=== PATIENT | male | born 1960 | race African-American/Black ===

== ENCOUNTER 2020-10-15 09:54 | Inpatient (IN) | payer OTHER ==
[~2020-10-15] VITALS: Ht 180.3 cm; Wt 58.1 kg
--- NOTE | 2020-10-15 09:59 | NUR ---
BIB RA,C/O PAIN IN PELVIC AREA X 4 WEEKS, R GROIN AREA PAIN, TO ER BED 10, HOOKED TO MONITOR, CGHANGED TO HOSP GOWN, WARM BLANKET PROVIDED, PATOENT AAO x 4. NAD NOTED, AWAITING MD SCOTT
--- NOTE | 2020-10-15 10:24 | NUR ---
DR SMITH AT BEDSIDE
[2020-10-15 10:52] LABS: BASOPHILS % (AUTO) 0.3 % (0.0-2.0); EOSINOPHILS % (AUTO) 0.4 % (0.0-6.0); HEMATOCRIT 40 % (39-51); HEMOGLOBIN 13.4 g/dL (13.5-17.5); LYMPHOCYTES # (AUTO) 0.8 /CMM (0.8-4.8); LYMPHOCYTES % (AUTO) 10.6 % (20.0-44.0); MEAN CORPUSCULAR HGB CONC 34 g/dl (31.0-36.0); MEAN CORPUSCULAR VOLUME 91 fL (80-96); MONOCYTES # (AUTO) 0.8 /CMM (0.1-1.30); MONOCYTES % (AUTO) 9.8 % (2.0-12.0); NEUTROPHILS # (AUTO) 6.2 /CMM (1.8-8.9); NEUTROPHILS % (AUTO) 78.9 % (43.0-81.0); PLATELET COUNT (AUTO) 377 /CMM (150-450); WHITE BLOOD COUNT (AUTO) 7.8 K/uL (4.3-11.0)
[2020-10-15 11:10] LABS: CALCIUM, SERUM 8.7 mg/dL (8.5-10.1); CARBON DIOXIDE 29 mmol/L (21-32); CHLORIDE 100 mmol/L (98-107); GLUCOSE 96 mg/dL (74-106); SODIUM SERUM 137 mmol/L (136-145); UREA NITROGEN, BLOOD 17 mg/dL (7-18)
[2020-10-15 11:14] LABS: ALANINE AMINOTRANSFERASE 19 U/L (12-78); ALBUMIN 3.2 g/dL (3.4-5.0); ALKALINE PHOSPHATASE 72 U/L (46-116); ASPARTATE AMINOTRANSFERASE 16 U/L (15-37); BILIRUBIN,DIRECT 0.1 mg/dL (0.0-0.2); BILIRUBIN,TOTAL 0.4 mg/dL (0.2-1.0); TOTAL PROTEIN, SERUM 7.6 g/dL (6.4-8.2)
[2020-10-15] MEDS ORDERED: IOHEXOL-300 100 ML VIAL IV ONE (11:22)
[2020-10-15] MEDS ORDERED: IV NS 0.9% 250 ML IV ONE (11:22)
[2020-10-15] MEDS ORDERED: CT SWABBABLE VALVE TRANS SET 1 EA INFUS.SET MC ONE (11:22)
[2020-10-15 12:07] LABS: LIPASE 106 U/L (73-393)
--- NOTE | 2020-10-15 13:30 | NUR ---
LAST PO INTAKE, PROVIDED WITH MD GRACIA AWARE
--- NOTE | 2020-10-15 13:42 | NUR ---
ADMITTED FOR RECTAL ABSCESS
[2020-10-15] MEDS ORDERED: PIPERACILLIN /TAZOBACTAM 3.375 G in IV D5W 50 ML IV ONE (14:00)
[2020-10-15] MEDS ORDERED: VANCOMYCIN 1 GM in IV D5W 250 ML IV ONE (14:00)
--- NOTE | 2020-10-15 14:18 | NUR ---
PER DR CORREA, PATIENT IS FOR CT GUIDED ABSCESS DRAINAGE THROUGH IR IN THE MORNING, KEEP NPO AFTER MIDNIGHT.
[2020-10-15] MEDS ORDERED: Z GUARD REMEDY 2 OZ OINT TP PRN (14:30)
[2020-10-15] MEDS ORDERED: ONDANSETRON HCL/PF 4 MG/2 ML VIAL IVP PRN (14:30)
[2020-10-15] MEDS ORDERED: MAGNESIUM HYDROXIDE 30 ML UDC PO PRN (14:30)
[2020-10-15] MEDS ORDERED: ZOLPIDEM TARTRATE 5 MG TABLET PO PRN (14:30)
[2020-10-15] MEDS ORDERED: MAG HYDROX/AL HYDROX/SIMETH 30 ML UDC PO PRN (14:30)
[2020-10-15] MEDS ORDERED: ACETAMINOPHEN 325 MG TABLET PO PRN (14:30)
[2020-10-15] MEDS ORDERED: HYDROCODONE/APAP 5/325MG TABLET PO PRN (14:30)
--- NOTE | 2020-10-15 14:32 | NUR ---
PATIENT REFUSED TO DO COVID SWAB, MADE DR COLLAZO AWARE. AWAITING FOR CALL BACK.
--- NOTE | 2020-10-15 14:42 | NUR ---
DR SMITH SPEAKING TO PATIENT REGARDING REFUSAL OF COVID SWAB.
--- NOTE | 2020-10-15 15:02 | NUR ---
ARCHIVES DIRECTOR AT BEDSIDE FOR BRIAN
--- NOTE | 2020-10-15 15:51 | NUR ---
Brittni garrett in ED - 10/15/20 at 1551 by MAMIE PER PATIENT, HE CAME FROM [facility]
--- NOTE | 2020-10-15 15:58 | NUR ---
DR CORREA MADE AWARE OF PATIENT REFUSAL FOR COVID SWAB
--- NOTE | 2020-10-15 17:02 | NUR ---
per house sup, no available nurse for now. will update us once patient is able to be transferred
--- NOTE | 2020-10-15 17:33 | NUR ---
REPORT GIVEN TO ARIA BAZZI OF [facility]
--- NOTE | 2020-10-15 17:45 | NUR ---
m/s space operations: notes brought pt from e.r for night admission per rn supervisor mechanic boilermaking and cn. pt awake, a/ox4, ambulatory. no c/o pain or any discomfort. oriented to room and surroundings. pt for ct guided abscess drainage through ir per report. pt to be npo. per report pt refused covid swab test and dr. carballo and dr. chairez aware. vss, afebrile. instructed to call for assistance. will continue to monitor.
[2020-10-15 18:00] VITALS: BP 132/69
[2020-10-15] MEDS: IV NS 0.9% 1,000 ML IV PRN ×2 (18:46→18:57)
[2020-10-15] MEDS: PIPERACILLIN /TAZOBACTAM 3.375 G in IV D5W 50 ML IV SCH ×2 (19:00→23:21)
--- NOTE | 2020-10-15 19:30 | NUR ---
m/s beam saw operator: notes consent obtained from pt re: CT guided abscess drainage or gabriel rectal abscess. pt to be npo after midnight, pt made aware.
--- NOTE | 2020-10-15 19:30 | NUR ---
RN OPENING NOTES: RECEIVED PT A/OX4 IN BED RESTING COMFORTABLY. PATIENT IN NO S/SX OF ACUTE DISTRESS AT THIS TIME. NO SOB NOTED. PATIENT'S BREATHING IS EVEN AND UNLABORED. PATIENT IS ON ROOM AIR; TOLERATING WELL; SATING @100% 02 SAT. PATIENT ON NPO AT THIS TIME IN PREPARATION TO MORNING PROCEDURE BREEZY. NOTED IV SITE ON L UA #18; PATENT, INTACT AND FLUSHING WELL; NO S/S OF INFECTION OR INFILTRATION. WITH IV FLUID RUNNING ORDERED. SAFETY MEASURES HAVE BEEN PROVIDED AND IMPLEMENTED. PATIENT BED ALARM IS ON. HEAD OF BED ELEVATED. BED IS LOCKED, IN LOWEST POSITION AND SIDE RAILS UP. CALL LIGHT WITHIN REACH OF THE PATIENT. APPLICABLE ISOLATION PRECAUTIONS IN PLACE. WILL CONTINUE TO MONITOR AND REASSESS FOR ANY CHANGES AND WILL CARRY OUT ANY ONGOING AND ACTIVE MD ORDER.
[2020-10-15 20:00] VITALS: BP 138/68
--- NOTE | 2020-10-15 23:00 | NUR ---
RN NOTES PATIENT REMAINS IN NO ACUTE RESPIRATORY DISTRESS AT THIS TIME, NO CHANGES TO CONDITION/STATUS. DRY CURE WORKER WELL AWARE. WILL CONTINUE TO MONITOR AND REASSESS FOR ANY CHANGES THROUGHOUT THE SHIFT
[2020-10-16] MEDS: IV NS 0.9% 1,000 ML IV PRN (03:00)
--- NOTE | 2020-10-16 03:00 | NUR ---
RN NOTES NO CHANGES IN PATIENT CONDITION AT THIS TIME PATIENT VITALS STABLE, NO SIGNS OF ACUTE RESPIRATORY DISTRESS. PATIENT STILL IN BED SLEEPING COMFORTABLY. NO COMPLAINTS OF PAIN OR ANY DISCOMFORT AT THIS TIME. WILL CONTINUE TO MONITOR AND REASSESS FOR ANY CHANGES THROUGHOUT THE SHIFT.
[2020-10-16 04:00] VITALS: BP 128/70
[2020-10-16] MEDS: PIPERACILLIN /TAZOBACTAM 3.375 G in IV D5W 50 ML IV SCH (05:05)
[2020-10-16 06:27] LABS: BASOPHILS % (AUTO) 0.3 % (0.0-2.0); EOSINOPHILS % (AUTO) 1.2 % (0.0-6.0); HEMATOCRIT 37 % (39-51); HEMOGLOBIN 12.5 g/dL (13.5-17.5); LYMPHOCYTES # (AUTO) 1.4 /CMM (0.8-4.8); MEAN CORPUSCULAR HGB CONC 34 g/dl (31.0-36.0); MEAN CORPUSCULAR VOLUME 90 fL (80-96); MONOCYTES # (AUTO) 0.8 /CMM (0.1-1.30); MONOCYTES % (AUTO) 9.9 % (2.0-12.0); NEUTROPHILS # (AUTO) 5.8 /CMM (1.8-8.9); NEUTROPHILS % (AUTO) 71.6 % (43.0-81.0); PLATELET COUNT (AUTO) 362 /CMM (150-450); RED BLOOD CELL COUNT(AUTO) 4.14 MIL/uL (4.5-6.0); WHITE BLOOD COUNT (AUTO) 8.1 K/uL (4.3-11.0)
--- NOTE | 2020-10-16 06:40 | NUR ---
RN CLOSING NOTES PATIENT REMAINS IN ROOM IN NO SIGNS OF RESPIRATORY DISTRESS. PATIENT SATURATING 99% OF 02. VITAL SIGNS WNL. IV LINE MAINTAINED, INTACT, PATENT AND FLUSHING, NO SITE REDNESS OR INFILTRATION. SAFETY PRECAUTIONS IN PLACE AND COMFORT MEASURES RENDERED. BED IN LOWEST POSITION, CALL LIGHT WITHIN REACH, BREAKS ON, SIDE RAILS UP. ALL NEEDS ATTENDED, MEDICATIONS GIVEN SCHEDULED AND ORDERED ; SHIFT ASSESSMENT/BEDBATH/SKIN CARE DONE. PATIENT KEPT CLEAN AND DRY. WILL ENDORSE TO INCOMING SHIFT FOR WILVER WITH ALL PERTINENT INFO REGARDING PATIENT STATUS.
[2020-10-16 06:51] LABS: CALCIUM, SERUM 8.3 mg/dL (8.5-10.1); CREATININE 0.9 mg/dL (0.6-1.3); MAGNESIUM 2.3 mg/dL (1.8-2.4); POTASSIUM 4.1 mmol/L (3.5-5.1)
--- NOTE | 2020-10-16 08:00 | NUR ---
PATIENT RECEIVED IN BED ON ROOM AIR O2 SATURATION 99% NO RESPIRATORY DISTRESS. PATIENT IS AMBULATORY, HAS ASTON #18G RUNNING NS @ 125 ML/HR. NO SIGNS OF INFECTION OR INFILTRATION. PATIENT TO POSSIBLY HAVE CT GUIDED ABCESS DRAIN, CONSENT VERIFIED, CONSENT FOR ANESTHESIA AND BLOOD TRANSFUSION OBTAINED. PER CT, ON-CALL RADIOLOGIST MAY NOT COME DUE TO IT BEING A ROUTINE PROCEDURE. ALL SAFETY MEASURES IN PLACE. WILL CONTINUE TO MONITOR CLOSELY
--- NOTE | 2020-10-16 09:15 | NUR ---
PATIENT NOTIFIED THAT RADIOLOGY PREFERS TO HAVE A COVID TEST RESULT FOR PROCEDURES. PATIENT MOOD CHANGED UPON BEING ASKED FOR A COVID SWAB, FROM PLEASANT AND FRIENDLY TO AGGRESSIVE AND NON-COMPLIANT.PATIENT STATES HE WISHES TO GO AMA. MD COLLAZO NOTIFIED, AT BEDSIDE TO PROVIDE EDUCATION OF THE RISKS OF NOT DOING THE PROCEDURE TO RESOLVE ABCESS. PATIENT MORE AGITATED AT THIS TIME, REMOVES HIS OWN IV LINE. WHEN PRESENTED WITH AMA FORM, PATIENT REFUSES TO SIGN. MD COLLAZO AWARE, AMA COSIGNED WITH ROSE MARY STORM
--- NOTE | 2020-10-16 09:44 | NUR ---
PATIENT LEFT AMA WITH ALL BELONGINGS, PATIENT REFUSE TO SIGN AMA FORM. PATIENT REMOVED ALL IV LINES, AND ID BANDS. PATIENT ORIGINALLY FROM [facility], [facility] INSTRUMENT REPAIRER NOTIFIED, BUT PER [facility] IN[employer]UMENT REPAIRER UNABLE TO PROVIDE TRANSPORTATION. PATIENT NOTIFIED, STATES HE DOES NOT NEED TRANSPORTATION.
[2020-10-16] MEDS ORDERED: PIPERACILLIN /TAZOBACTAM 3.375 G in IV D5W 100 ML IV SCH (14:00)
== END 2020-10-16 11:00 | disposition left against medical advice (07) | DRG 254 ==
LOC: ER 10:09 → TELE1 15:12 → MEDSG1 17:53
PROVIDERS: ADMIT Family Medicine; ATTEND Family Medicine
DX: K61.1 Rectal abscess (principal); E44.1 Mild protein-calorie malnutrition; F12.90 Cannabis use, unspecified, uncomplicated; I10 Essential (primary) hypertension; E88.09 Other disorders of plasma-protein metabolism, not elsewhere classified; Z68.1 Body mass index [BMI] 19.9 or less, adult; R94.31 Abnormal electrocardiogram [ECG] [EKG]
CPT/HCPCS: 36415; 71045-TC; 80048-TC; 80061-TC; 80076-TC; 83605-TC; 83690-TC; 83735-TC; 84100-TC; 84484-TC; 85025-TC; 85730-TC; 86850-TC; 87081-TC; 93307-TC; G0378; J2543; J3370; J7030; J7050; J7060; Q9967